=== PATIENT | female | born 1940 ===

== ENCOUNTER 2016-10-05 09:57 | Emergency (ER) | payer MEDICARE ==
[2016-10-05 10:04] VITALS: BP 172/79; PULSE 84; RESP 16; TEMP 99.4; O2SAT 95
[2016-10-05] MEDS ORDERED: Oxycodone/Acetaminophen 5/325 mg Tab PO STA (10:43)
--- NOTE | 2016-10-05 10:45 | C.PDOC ---
History Of Present Illness 76-year-old female, presents to the emergency department with complaints of pain over the left hip and groin area for the past 3-4 days. Pain is associated with rash that appeared two days ago. Otherwise, patient denies any recent illness, fevers or chills, sore throat, CP, SOB, dyspnea, abd. pain, N/V, UTI sx , denies weakness, sensory or vascular deficist to B/L LEs. No other complaints at this time. Ambulate to Ed for evaluation, not in any apparent distress. Time Seen by Provider: 10/05/16 10:09 Chief Complaint (Nursing): Back Pain History Per: Patient History/Exam Limitations: no limitations Onset/Duration Of Symptoms: Days Current Symptoms Are (Timing): Still Present Severity: Moderate Past Medical History Vital Signs: Last Vital Signs Temp 99.4 F 10/05/16 10:01 Pulse 84 10/05/16 10:01 Resp 16 10/05/16 10:01 BP 172/79 H 10/05/16 10:01 Pulse Ox 95 10/05/16 10:53 - Medical History PMH: Arthritis, HTN, Hypercholesterolemia Denies: Chronic Kidney Disease Family History: States: Unknown Family Hx - Social History Hx Alcohol Use: No Hx Substance Use: No Review Of Systems Except As Marked, All Systems Reviewed And Found Negative. Constitutional: Negative for: Fever Cardiovascular: Negative for: Chest Pain, Palpitations Respiratory: Negative for: Shortness of Breath Gastrointestinal: Negative for: Nausea, Vomiting Musculoskeletal: Positive for: Other (L hip pain) Skin: Positive for: Rash Physical Exam - Physical Exam Appears: Well, No Acute Distress Skin: Normal Color, Warm, Dry, Rash (diffuse erythematous vesicular rash in groups overlying Left hip, Left groin area c/w left L2 dermatome, not crossing midline. No evidence of superimposed infection, no cellulitis.) Eye(s): bilateral: PERRL Nose: No Discharge Throat: No Erythema, No Exudate, No Drooling, Other (uvula midline, no edema.) Neck: Supple Cardiovascular: No JVD Gastrointestinal/Abdominal: Soft, No Tenderness, No Distention, No Guarding Back: No CVA Tenderness, No Vertebral Tenderness, No Paraspinal Tenderness Extremity: Normal ROM, No Pedal Edema, No Deformity, No Swelling Neurological/Psych: Oriented x3, Normal Speech, Normal Motor, Normal Sensation, Normal Reflexes ED Course And Treatment O2 Sat by Pulse Oximetry: 95 Progress Note: On re-eavluation, pt is afebrile, hemodynamicaly stable. Non- toxic. Ambulatory in ED with stable gait. PuslEOx 95% RA. ENT: no acute findings. Lungs: CTA B/L, BS equal B/L. Abd: benign. LLE: FAROM, no neurovascular deficits, no deformity. Skin exam c/w Herpes Zoster overlying left L2 dermatome, no evidence of superimposed infection/cellulitis. Pt advised on course of ds. ref. to f/u with PMD in 2-3 days for re-eval. return to ED if any worsening or new changes. Disposition Counseled Patient/Family Regarding: Diagnosis, Need For Followup, Rx Given - Disposition Referrals: Shaista Frank MD [Staff Provider] - Disposition: HOME/ ROUTINE Disposition Time: 10:44 Condition: STABLE Prescriptions: oxyCODONE/Acetaminophen [Percocet 5/325 mg Tab] 1 tab PO BID #6 tab Prednisone [Deltasone] 40 mg PO DAILY #6 tablet valACYclovir [Valtrex] 1 gm PO TID #21 tab Instructions: Shingles (ED) Print Language: YORUBA - Clinical Impression Clinical Impression: Herpes zoster
[2016-10-05] MEDS ORDERED: Oxycodone/Acetaminophen 5/325 mg Tab ONE (10:47)
== END 2016-10-05 11:00 | disposition home or self-care (01) ==
LOC: C.ER 09:57
DX: B02.9 Zoster without complications (principal)

== ENCOUNTER 2016-10-11 21:49 | Emergency (ER) | payer MEDICARE ==
[2016-10-11 21:54] VITALS: BP 167/66; PULSE 81; RESP 20; TEMP 97.6; O2SAT 96
--- NOTE | 2016-10-11 22:11 | C.PDOC ---
History Of Present Illness Patient complains of left lower back pain, recently seen in ED and diagnosed with Shingles. Patient continues to have pain to area. Denies any new injury. Time Seen by Provider: 10/11/16 22:02 Chief Complaint (Nursing): Back Pain History Per: Patient History/Exam Limitations: no limitations Onset/Duration Of Symptoms: Days Current Symptoms Are (Timing): Still Present Quality Of Discomfort: Unable To Describe Previous Symptoms: Other (Shingles) Associated Symptoms: None Recent travel outside of the [place]: No Past Medical History Reviewed: Historical Data, Nursing Documentation, Vital Signs Vital Signs: Last Vital Signs Temp 97.6 F 10/11/16 21:51 Pulse 81 10/11/16 21:51 Resp 20 10/11/16 21:51 BP 167/66 H 10/11/16 21:51 Pulse Ox 96 10/11/16 22:32 - Medical History PMH: Arthritis, HTN, Hypercholesterolemia Surgical History: No Surg Hx Family History: States: Unknown Family Hx - Social History Hx Alcohol Use: No Hx Substance Use: No - Immunization History Hx Tetanus Toxoid Vaccination: No Hx Influenza Vaccination: No Hx Pneumococcal Vaccination: No Review Of Systems Constitutional: Negative for: Fever, Chills Musculoskeletal: Positive for: Back Pain Physical Exam - Physical Exam Appears: Non-toxic, No Acute Distress Skin: Warm, Dry, Other (Drying scabs and vesicular like rash in clusters to left hip and left groin area not crossing midline. No evidence of superimposed infection, no cellulitis.) Head: Atraumatic, Normacephalic Back: Normal Inspection, No Vertebral Tenderness, No Paraspinal Tenderness Neurological/Psych: Oriented x3, Normal Speech, Normal Cognition ED Course And Treatment O2 Sat by Pulse Oximetry: 96 (Room air) Pulse Ox Interpretation: Normal Medical Decision Making Medical Decision Making: Patient with Zoster and continues to have back pain, ran out of percocet. Patient has no new injury or other complaint. Will prescribe meds. Disposition Counseled Patient/Family Regarding: Need For Followup, Rx Given - Disposition Referrals: Shaista Frank MD [Staff Provider] - Disposition: HOME/ ROUTINE Disposition Time: 22:09 Condition: STABLE Additional Instructions: [place] Ibuprofen para el dolor leve a moderado cada 8 horas [place] Tramadol para el dolor intenso segn sea necesario cada 8 horas Aplique crema para ayudar a anestesiar y aliviar el dolor Prescriptions: Ibuprofen [Motrin] 600 mg PO Q8 #30 tab Lidocaine [Lmx 4] 5 gm TP Q12 #1 cre traMADol [Ultram] 50 mg PO Q8 #14 tab Instructions: Shingles (DC) Forms: Dindong (Albanian) Print Language: IRAQI - POA Present On Arrival: None - Clinical Impression Clinical Impression: Herpes zoster - Scribe Statement The provider has reviewed the documentation as recorded by the Scribmariza Acosta All medical record entries made by the Scribe were at my direction and personally dictated by me. I have reviewed the chart and agree that the record accurately reflects my personal performance of the history, physical exam, medical decision making, and the department course for this patient. I have also personally directed, reviewed, and agree with the discharge instructions and disposition.
== END 2016-10-11 22:28 | disposition home or self-care (01) ==
LOC: C.ER 21:49
DX: B02.9 Zoster without complications (principal)

== ENCOUNTER 2017-05-05 12:32 | Emergency (ER) | payer MEDICARE ==
[2017-05-05 12:42] VITALS: RESP 18; O2SAT 95
[2017-05-05] MEDS ORDERED: Sodium Chloride 0.9% 1,000 ML IV ONE (14:36)
[2017-05-05] MEDS ORDERED: Sodium Chloride 0.9% 1,000 ML ONE (14:52)
[2017-05-05] MEDS ORDERED: Morphine 4 MG/ML VIAL ONE (14:52)
[2017-05-05 15:29] LABS: BASO % 0.3 % (0.0-2.0); EOS % 0.1 % (0.0-4.0); HEMOGLOBIN 13.9 g/dL (11.0-16.0); LYMPH # 0.6 K/uL (1.0-4.3); LYMPH % 4.5 % (20.0-40.0); MEAN CELL VOLUME 90.3 fL (81.0-99.0); MEAN CORPUSCULAR HEMOGLOBIN 30.8 pg (27.0-31.0); MEAN CORPUSCULAR HGB CONC 34.1 g/dL (33.0-37.0); MEAN PLATELET VOLUME 8.8 fL (7.2-11.7); MONO # 0.5 K/uL (0.0-0.8); MONO % 3.7 % (0.0-10.0); NEUT % 91.4 % (50.0-75.0); PLATELET COUNT 230 K/uL (130-400); RBC 4.51 Mil/uL (3.80-5.20); WHITE BLOOD COUNT 13.1 K/uL (4.8-10.8)
--- NOTE | 2017-05-05 15:30 | C.PDOC ---
History Of Present Illness 77 y/o female presents to ED sent by PMD for evaluation of right side abdominal pain. Patient states last night she developed abdominal pain, vomiting and diarrhea continued today which prompted visit to ED. Patient reports pain is worse on RLQ and states grandson had similar symptoms few days ago. Patient denies fever, back pain, blood in stool or dysuria. Time Seen by Provider: 05/05/17 14:32 Chief Complaint (Nursing): Abdominal Pain History Per: Patient History/Exam Limitations: no limitations Onset/Duration Of Symptoms: Days Current Symptoms Are (Timing): Still Present Location Of Pain/Discomfort: RLQ Past Medical History Reviewed: Historical Data, Nursing Documentation, Vital Signs Vital Signs: Last Vital Signs Temp 99.5 F 05/05/17 12:39 Pulse 108 H 05/05/17 12:39 Resp 18 05/05/17 12:39 BP 112/72 05/05/17 12:39 Pulse Ox 95 05/05/17 17:39 - Medical History PMH: Arthritis, HTN, Hypercholesterolemia Surgical History: No Surg Hx Family History: States: No Known Family Hx - Social History Hx Alcohol Use: No Hx Substance Use: No - Immunization History Hx Tetanus Toxoid Vaccination: No Hx Influenza Vaccination: No Hx Pneumococcal Vaccination: No Review Of Systems Constitutional: Negative for: Fever, Chills Gastrointestinal: Positive for: Vomiting, Abdominal Pain, Diarrhea. Negative for: Hematochezia, Hematemesis Genitourinary: Negative for: Dysuria Skin: Negative for: Rash Physical Exam - Physical Exam Appears: Non-toxic, Other (Uncomfortable) Skin: Warm, Dry, No Rash Head: Atraumatic, Normacephalic Eye(s): bilateral: Normal Inspection, EOMI Oral Mucosa: Moist Neck: Normal ROM, Supple Chest: Symmetrical Cardiovascular: Rhythm Regular, Other (Tachycardic) Respiratory: Normal Breath Sounds, No Rales, No Rhonchi, No Wheezing Gastrointestinal/Abdominal: Soft, Tenderness (Gneralized more to RLQ), No Distention, No Guarding, No Rebound Back: Normal Inspection, No CVA Tenderness Extremity: Bilateral: Atraumatic, No Pedal Edema, Normal Color And Temperature Neurological/Psych: Oriented x3, Normal Speech Gait: Steady ED Course And Treatment - Laboratory Results Result Diagrams: 05/05/17 15:21 02/20/18 15:21 O2 Sat by Pulse Oximetry: 95 (RA) Pulse Ox Interpretation: Normal - CT Scan/US CT abdomen/pelvis Other Rad Studies (CT/US): Read By Radiologist, Radiology Report Reviewed CT/US Interpretation: HISTORY: RLQ abd pain. COMPARISON: None available. TECHNIQUE: Contrast dose: 100 cc Visipaque 320. Radiation dose: Total exam DLP = 377.88 mGy-cm. This CT exam was performed using one or more of the following dose reduction techniques: Automated exposure control, adjustment of the mA and/or kV according to patient size, and/or use of iterative reconstruction technique. FINDINGS: LOWER THORAX: Bibasilar atelectasis/ infiltrates. No visible pleural effusion or pneumothorax. LIVER: Unremarkable. GALLBLADDER AND BILE DUCTS: Unremarkable. PANCREAS: Unremarkable. SPLEEN: Unremarkable. ADRENALS: Unremarkable. KIDNEYS AND URETERS: The kidneys enhance symmetrically. No hydronephrosis or obstructing calculus identified. VASCULATURE: No aortic aneurysm. BOWEL: Stomach is nondistended. Lack of oral contrast limits evaluation for bowel pathology. Bowel loops appear within normal limits of caliber without evidence of obstruction. Small bowel wall thickening involving a loop in the right lower quadrant (coronal 41 through 43) ; correlate for infectious or inflammatory etiologies. Diverticulosis without CT evidence of acute diverticulitis. APPENDIX: The appendix appears within normal limits of caliber. No secondary signs of acute appendicitis. PERITONEUM: No significant free fluid. No definite free air. LYMPH NODES: No bulky adenopathy identified. BLADDER: Unremarkable. REPRODUCTIVE: The uterus is present. BONES: Degenerative changes. Mild curvature of the lumbar spine convex the left. Well corticated calcifications/ossifications adjacent to the left greater trochanter appear chronic. OTHER FINDINGS: Tiny fat containing umbilical hernia. IMPRESSION: Small bowel wall thickening involving a loop in the right lower quadrant ; correlate for infectious or inflammatory etiologies. Diverticulosis without CT evidence of acute diverticulitis. Bibasilar atelectasis/infiltrates. Medical Decision Making Medical Decision Making: Impression: Abdominal pain Plan: CT abd pelvis, blood work ordered. Zofran, Pepcid and Morphine administered Progress: Diagnostics reviewed. CT shows Small bowel wall thickening involving a loop in the right lower quadrant ; no appendicitis. 1737 Patient reevaluated and reports feeling better. She has no fever and in no distress. abdomen soft and non-distended, still mildly tender. Discussed results with patient, and copy of labs and CT report was provided. Patient feels comfortable going home and will be discharged. Patient given follow up instructions and Rx. Instructed to return to ER if symptoms worsen or new symptoms arise. Disposition Counseled Patient/Family Regarding: Diagnosis, Need For Followup, Rx Given - Disposition Referrals: Shaista Frank MD [Staff Provider] - Disposition: HOME/ ROUTINE Disposition Time: 18:02 Condition: STABLE Additional Instructions: Prescription sent to Prescription center pharmacy take antibiotic twice a day for one week Drink fluids, such as sport drink Gatorade to stay hydrated Follow up with your primary medical doctor in 4-5 days for further evaluation Return to the emergency department at any time if symptoms persist or worsen. Receta enviada a la farmacia del centro de prescripcin vanessa antibiticos dos veces al da marcos isaac semana Tamara lquidos, aric la bebida deportiva Gatorade para mantenerse hidratado Ramon un seguimiento con parker mdico de cabecera en 4-5 rodriguez para isaac evaluacin posterior Regrese al departamento de emergencia en cualquier momento si los sntomas persisten o empeoran. Prescriptions: Ciprofloxacin [Cipro] 1 tab PO BID #14 tab Instructions: Gastroenteritis (DC) Forms: [employer] (German) Print Language: AZERI - POA Present On Arrival: None - Clinical Impression Clinical Impression: Gastroenteritis, Colitis - PA / BASEBALL WINDER / Resident Statement MD/DO has reviewed & agrees with the documentation as recorded. - Scribe Statement The provider has reviewed the documentation as recorded by the Kayliibmariza Bañuelos All medical record entries made by the Kayliibmariza were at my direction and personally dictated by me. I have reviewed the chart and agree that the record accurately reflects my personal performance of the history, physical exam, medical decision making, and the department course for this patient. I have also personally directed, reviewed, and agree with the discharge instructions and disposition.
[2017-05-05 15:41] LABS: ALB/GLOB RATIO 1.2 (1.0-2.1); ALBUMIN 4.3 g/dL (3.5-5.0); ALT/SGPT 23 U/L (9-52); AST/SGOT 34 U/L (14-36); BLOOD UREA NITROGEN 17 mg/dL (7-17); CALCIUM 8.6 mg/dl (8.6-10.4); GFR AFRICAN-AMERICAN > 60; GFR NON-AFRICAN AMERICAN > 60; LIPASE 30 U/L (23-300)
[2017-05-05] MEDS ORDERED: Potassium Chloride 20 mEq ER Tab PO STA (16:40)
[2017-05-05 16:56] LABS: BANDS 1 % (0-2); HYPOCHROMIC SLIGHT; LYMPHOCYTE 4 % (20-40); MICROCYTOSIS SLIGHT; MONOCYTE 4 % (0-10); NEUTROPHIL 91 % (50-75); PLATELET ESTIMATE NORMAL (NORMAL); TOTAL CELLS COUNTED 100
[2017-05-05 16:57] LABS: LARGE PLATELETS PRESENT
[2017-05-05] MEDS ORDERED: Iodixanol 320 MG/ML 100 ML BOTTLE IV ONE (17:11)
[2017-05-05] MEDS ORDERED: Potassium Chloride 20 mEq ER Tab PO ONE (17:13)
--- NOTE | 2017-05-05 17:22 | CT ---
PROCEDURE: CT Abdomen and Pelvis with contrast HISTORY: RLQ abd pain COMPARISON: None available. TECHNIQUE: Contrast dose: 100 cc Visipaque 320 Radiation dose: Total exam DLP = 377.88 mGy-cm. This CT exam was performed using one or more of the following dose reduction techniques: Automated exposure control, adjustment of the mA and/or kV according to patient size, and/or use of iterative reconstruction technique. FINDINGS: LOWER THORAX: Bibasilar atelectasis/infiltrates. No visible pleural effusion or pneumothorax. LIVER: Unremarkable. GALLBLADDER AND BILE DUCTS: Unremarkable. PANCREAS: Unremarkable. SPLEEN: Unremarkable. ADRENALS: Unremarkable. KIDNEYS AND URETERS: The kidneys enhance symmetrically. No hydronephrosis or obstructing calculus identified. VASCULATURE: No aortic aneurysm. BOWEL: Stomach is nondistended. Lack of oral contrast limits evaluation for bowel pathology. Bowel loops appear within normal limits of caliber without evidence of obstruction. Small bowel wall thickening involving a loop in the right lower quadrant (coronal 41 through 43) ; correlate for infectious or inflammatory etiologies. Diverticulosis without CT evidence of acute diverticulitis. APPENDIX: The appendix appears within normal limits of caliber. No secondary signs of acute appendicitis. PERITONEUM: No significant free fluid. No definite free air. LYMPH NODES: No bulky adenopathy identified. BLADDER: Unremarkable. REPRODUCTIVE: The uterus is present. BONES: Degenerative changes. Mild curvature of the lumbar spine convex the left. Well corticated calcifications/ossifications adjacent to the left greater trochanter appear chronic. OTHER FINDINGS: Tiny fat containing umbilical hernia. IMPRESSION: Small bowel wall thickening involving a loop in the right lower quadrant ; correlate for infectious or inflammatory etiologies. Diverticulosis without CT evidence of acute diverticulitis. Bibasilar atelectasis/infiltrates.
[2017-05-05 17:59] VITALS: BP 116/65; PULSE 90; TEMP 99.8
== END 2017-05-05 18:09 | disposition home or self-care (01) ==
LOC: C.ER 12:32
DX: K52.9 Noninfective gastroenteritis and colitis, unspecified (principal)
CPT/HCPCS: 74177; 80053; 83690; 85025; 96361; 96374; 96375; 99284; J2270; J2405; J7040; Q9967